=== PATIENT | female | born 1990 | race Caucasian/White ===

== ENCOUNTER 2016-11-11 23:23 | Emergency (ER) | payer BC ==
[2016-11-12] MEDS ORDERED: methylPREDNISolone 125 MG* 2 ML VIAL IM ONE (00:32)
[2016-11-12] MEDS ORDERED: Albuterol/Ipratropium NEB.SOL* Albuterol 2.5 MG/Ipratropium 0.5 MG 3 ML INH ONE ×2 (00:32→03:06)
[2016-11-12 01:10] LABS: Hematocrit 39 % (35-47); Hemoglobin 12.9 g/dl (12.0-16.0); Mean Corpuscular HGB Conc 33 g/dl (31-36); Mean Corpuscular Hemoglobin 30 pg (27-31); Mean Corpuscular Volume 90 fL (80-97); Mean Platelet Volume 10 um3 (7.4-10.4); Red Blood Count 4.37 10^6/ul (4.0-5.4); Red Cell Distribution Width 13 % (10.5-15); White Blood Count 8.9 10^3/ul (3.5-10.8)
[2016-11-12 01:26] LABS: BUN/Creatinine Ratio 12.7 (8-20); Calcium 9.6 mg/dL (8.6-10.3); EGFR African American 113.1 (>60); Potassium 3.2 mmol/L (3.5-5.0)
[2016-11-12] MEDS ORDERED: Magnesium Oxide TAB* 400 MG PO ONE (03:06)
--- NOTE | 2016-11-12 03:09 | ED ---
Shortness of Breath - HPI Summary HPI Summary: This is a 26F, hx anxiety and asthma, presenting for two weeks of shortness of breath, wheezing, cough and chest burning with cough. She has had two visits with her PCP, apparently failed peak flow testing at the office and diagnosed with asthma and subsequently referred to pulmonology. She is taking inhaled corticosteroids, new age bronchodilators, and has been on 20 mg prednisone for the past two days. No relief of symptoms with those treatments, except for her albuterol nebulizer. Denies hemoptysis, fever, sweats, chills, leg swelling or pain, recent travel greater than 1 hr, recent surgery, recent immobilization or history of clots. Nonsmoker. She is on contraceptive medication. She does report her anxiety flaring up, believes that her anxiety may influence her shortness of breath. - History of Current Complaint Chief Complaint: EDAsthma Time Seen by Provider: 11/12/16 00:02 Hx Obtained From: Patient Onset/Duration: Sudden Onset Timing: Constant Current Severity: Mild Dyspnea At: Exertion Aggrevating Factors: Deep Breaths Alleviating Factors: Bronchodilators Associated Signs & Symptoms: Cough (Nonproductive), Wheezing, Chest Pain w/Cough - Risk Factors Pulmonary Embolism: Estrogen Cardiac: Negative Pseudomonas: Negative Tuberculosis: Negative - Allergy/Home Medications Allergies/Adverse Reactions: Allergies Allergy/AdvReac Type Severity Reaction Status Date / Time No Known Allergies Allergy Verified 05/17/14 11:47 PMH/Surg Hx/FS Hx/Imm Hx Previously Healthy: Yes Endocrine/Hematology History: Denies: Hx Anticoagulant Therapy, Hx Blood Disorders, Hx Blood Transfusions, Hx Bone Marrow Disease, Hx Diabetes, Hx Systemic Lupus Erythematosus, Hx Sickle Cell Disease, Hx Thyroid Disease, Hx Anemia, Hx Unexplained Bleeding, Hx Coagulopothy, Autoimmune Disease, Other Endocrine/Hematological Disorders Respiratory History: Reports: Hx Asthma - Surgical History Surgery Procedure, Year, and Place: INGUINAL HERNIA A CHILD ? SIDE Infectious Disease History: No Infectious Disease History: Denies: Traveled Outside the [place] in Last 30 Days - Social History Alcohol Use: None Substance Use Type: Reports: None Smoking Status (MU): Never Smoked Tobacco Review of Systems Constitutional: Negative Eyes: Negative ENT: Negative Cardiovascular: Negative Respiratory: Negative Gastrointestinal: Negative Genitourinary: Negative Musculoskeletal: Negative Skin: Negative Neurological: Negative Psychological: Normal All Other Systems Reviewed And Are Negative: Yes Physical Exam - Summary Physical Exam Summary: Diminished breath sounds bilaterally, no resp distress or tachypnea Triage Information Reviewed: Yes Vital Signs On Initial Exam: Initial Vitals Temp Pulse Resp BP Pulse Ox 36.6 C 86 18 156/67 100 11/11/16 23:34 11/11/16 23:34 11/11/16 23:34 11/11/16 23:34 11/11/16 23:34 Vital Signs Reviewed: Yes Appearance: Positive: Well-Appearing Skin: Positive: Warm Head/Face: Positive: Normal Head/Face Inspection Eyes: Positive: Normal ENT: Positive: Normal ENT inspection Neck: Positive: Supple, Nontender, No Lymphadenopathy Respiratory/Lung Sounds: Positive: Decreased Breath Sounds Cardiovascular: Positive: Normal, RRR, Pulses are Symmetrical in both Upper and Lower Extremities Abdomen Description: Positive: Nontender, No Organomegaly Bowel Sounds: Positive: Present Musculoskeletal: Positive: Normal Neurological: Positive: Normal Psychiatric: Positive: Normal - [place] Coma Scale Coma Scale Total: 15 Diagnostics - Vital Signs Vital Signs Temp Pulse Resp BP Pulse Ox 11/12/16 01:34 60 99 11/12/16 01:30 36.6 C 60 20 123/65 100 11/11/16 23:34 36.6 C 86 18 156/67 100 - Laboratory Lab Results: Lab Results 11/12/16 11/12/16 11/12/16 Range/Units 00:54 00:54 00:54 WBC 8.9 (3.5-10.8) 10^3/ul RBC 4.37 (4.0-5.4) 10^6/ul Hgb 12.9 (12.0-16.0) g/dl Hct 39 (35-47) % MCV 90 (80-97) fL MCH 30 (27-31) pg MCHC 33 (31-36) g/dl RDW 13 (10.5-15) % Plt Count 189 (150-450) 10^3/ul MPV 10 (7.4-10.4) um3 D-Dimer, Quantitative < 200 (Less Than 230) ng/mL Sodium 137 (133-145) mmol/L Potassium 3.2 L (3.5-5.0) mmol/L Chloride 105 (101-111) mmol/L Carbon Dioxide 25 (22-32) mmol/L Anion Gap 7 (2-11) mmol/L BUN 10 (6-24) mg/dL Creatinine 0.79 (0.51-0.95) mg/dL Est GFR ( Amer) 113.1 (>60) Est GFR (Non-Af Amer) 88.0 (>60) BUN/Creatinine Ratio 12.7 (8-20) Glucose 104 H (70-100) mg/dL Calcium 9.6 (8.6-10.3) mg/dL Result Diagrams: 11/12/16 00:54 11/12/16 00:54 Lab Statement: Any lab studies that have been ordered have been reviewed, and results considered in the medical decision making process. - Radiology No standard instances Xray Interpretation: No Acute Changes Radiology Interpretation Completed By: ED Physician Re-Evaluation - Re-Evaluation First Eval Re-Evaluation Time: 00:30 Change: Improved - Improved after neb Second Eval Re-Evaluation Time: 03:00 Change: Improved - ambulatory, feeling better, improved aeration Course/Dx - Course Course Of Treatment: D-dimer negative, no suspicion for cardiac etiology of burning/sob. Lung sounds diminished, dx asthma, improved with bronchodilators. Transitioned patient off prednisone to medrol dosepak, referred back to PCP. No distress, ambulatory sat 99% - Diagnoses Provider Diagnoses: Asthma exacerbation Discharge - Discharge Plan Condition: Good Disposition: HOME Prescriptions: Methylprednisolone [Medrol Dosepak 4 MG*] 1 mg PO .SEE YUNIER INSTRUCTION #1 packet Patient Education Materials: Asthma (ED) Referrals: Ang David MD [Primary Care Provider] - 2 Days (RETURN TO ER FOR CHANGING OR WORSENING SYMPTOMS STOP TAKING YOUR PREDNISONE)
[2016-11-12 05:59] VITALS: BP 125/67
--- NOTE | 2016-11-12 07:49 | RAD ---
INDICATION: Shortness of breath and coughing COMPARISON: Similar chest x-ray dated August 12, 2012 TECHNIQUE: PA and lateral views of the chest were obtained. FINDINGS: The heart and mediastinum are normal in size and contour. The lungs are grossly clear. There is no evidence of large pleural effusion. Visualized bones are normal for the patient's age. There is no radiographic evidence of free air beneath the diaphragm IMPRESSION: No radiographic evidence of acute cardiopulmonary disease.
== END 2016-11-12 04:45 | disposition home or self-care (01) ==
LOC: ED 23:23
DX: J45.909 Unspecified asthma, uncomplicated (principal)
CPT/HCPCS: 36415; 71020; 80048; 85027; 85379; 94640; A9270-GY; J2930

== ENCOUNTER 2016-11-16 15:52 | Emergency (ER) | payer BC ==
[2016-11-16] MEDS ORDERED: Ondansetron INJ* 2 MG/ML VIAL IV ONE (16:53)
[2016-11-16] MEDS ORDERED: HYDROmorphone* 1 MG/ML 1 ML SYR IV ONE (16:53)
[2016-11-16] MEDS ORDERED: NS 0.9% 1000 ML* 1,000 ML IV ONE (16:53)
[2016-11-16] MEDS ORDERED: Ketorolac INJ* 30 MG/ML 1 ML VIAL IV ONE (17:31)
[2016-11-16 17:45] LABS: Hematocrit 40 % (35-47); Hemoglobin 13.5 g/dl (12.0-16.0); Mean Corpuscular HGB Conc 34 g/dl (31-36); Mean Corpuscular Hemoglobin 31 pg (27-31); Mean Corpuscular Volume 91 fL (80-97); Mean Platelet Volume 10 um3 (7.4-10.4); Red Blood Count 4.39 10^6/ul (4.0-5.4); Red Cell Distribution Width 13 % (10.5-15); White Blood Count 8.4 10^3/ul (3.5-10.8)
[2016-11-16 17:51] LABS: Urine Bacteria 1+ (Absent); Urine Bilirubin Negative (Negative); Urine Glucose Negative (Negative); Urine Nitrite Negative (Negative)
[2016-11-16 18:04] LABS: ALT 18 U/L (7-52); AST 12 U/L (13-39); Albumin 4.1 g/dL (3.2-5.2); Alkaline Phosphatase 29 U/L (34-104); Anion Gap 4 mmol/L (2-11); Blood Urea Nitrogen 9 mg/dL (6-24); C Reactive Protein < 1.00 mg/L (< 5.00); CO2 Carbon Dioxide 28 mmol/L (22-32); Calcium 9.4 mg/dL (8.6-10.3); Chloride 103 mmol/L (101-111); EGFR African American 120.1 (>60); EGFR Non-African American 93.4 (>60); Globulin 2.6 g/dL (2-4); Glucose 100 mg/dL (70-100); Lipase 28 U/L (11.0-82.0); Potassium 3.6 mmol/L (3.5-5.0); Sodium 135 mmol/L (133-145); Total Protein 6.7 g/dL (6.4-8.9)
[2016-11-16 20:04] VITALS: BP 121/67
--- NOTE | 2016-11-18 14:52 | ED ---
Lito Vale Alok, scribed for Rodney Ocasio MD on 11/16/16 at 1650 . Abdominal Pain/Female - HPI Summary HPI Summary: 26F presents to the ED with diffuse abd pain described as burning for the past 3 days. Pt was last here 5 days ago due to asthma exacerbation and had a shot of Solu-medrol at the ED. Pt tired taking her GERD medication for her abd pain with no alleviation. Pt states that her pain improves temporarily after food. Pt also notes diaphoresis. Pt denies urinary symptoms and states her BM have been normal. PMHx includes GERD and PSHx includes a hernia repair. Pt reports NKDA. - History of Current Complaint Chief Complaint: EDAbdPain Stated Complaint: ABD PAIN Time Seen by Provider: 11/16/16 16:17 Hx Obtained From: Patient Onset/Duration: Lasting Days, Still Present Timing: Constant Severity Initially: Moderate Severity Currently: Moderate Pain Intensity: 8 Pain Scale Used: 0-10 Numeric Location: Diffuse Character: Burning Aggravating Factor(s): Nothing Alleviating Factor(s): Other: - Food Associated Signs and Symptoms: Positive: Diaphoresis. Negative: Fever, Constipation, Urinary Symptoms Allergies/Adverse Reactions: Allergies Allergy/AdvReac Type Severity Reaction Status Date / Time No Known Allergies Allergy Verified 05/17/14 11:47 PMH/Surg Hx/FS Hx/Imm Hx Endocrine/Hematology History: Denies: Hx Anticoagulant Therapy, Hx Blood Disorders, Hx Blood Transfusions, Hx Bone Marrow Disease, Hx Diabetes, Hx Systemic Lupus Erythematosus, Hx Sickle Cell Disease, Hx Thyroid Disease, Hx Anemia, Hx Unexplained Bleeding, Other Endocrine/Hematological Disorders Respiratory History: Reports: Hx Asthma - Surgical History Surgery Procedure, Year, and Place: INGUINAL HERNIA A CHILD ? SIDE Infectious Disease History: Denies: Traveled Outside the [place] in Last 30 Days - Family History Known Family History: Negative: Cardiac Disease, Hypertension, Diabetes - Social History Occupation: Unemployed Alcohol Use: None Substance Use Type: Reports: None Smoking Status (MU): Never Smoked Tobacco Review of Systems Negative: Fever Positive: Abdominal Pain Positive: no symptoms reported - Urinary All Other Systems Reviewed And Are Negative: Yes Physical Exam Triage Information Reviewed: Yes Vital Signs On Initial Exam: Initial Vitals Temp Pulse Resp BP Pulse Ox 98 F 67 17 131/76 100 11/16/16 15:52 11/16/16 15:52 11/16/16 15:52 11/16/16 15:52 11/16/16 15:52 Vital Signs Reviewed: Yes Appearance: Positive: Well-Appearing, No Pain Distress Skin: Positive: Warm, Skin Color Reflects Adequate Perfusion, Dry Head/Face: Positive: Normal Head/Face Inspection Eyes: Positive: Normal ENT: Positive: Normal ENT inspection Neck: Positive: Supple, Nontender Respiratory/Lung Sounds: Positive: Clear to Auscultation, Breath Sounds Present Cardiovascular: Positive: RRR Abdomen Description: Positive: Soft, Other: - Diffusely tender especially in the lower quadrants and right-side lower quadrant Bowel Sounds: Positive: Present Musculoskeletal: Positive: Normal Neurological: Positive: Normal Psychiatric: Positive: Normal, Affect/Mood Appropriate Diagnostics - Vital Signs Vital Signs Temp Pulse Resp BP Pulse Ox 11/16/16 15:52 98 F 67 17 131/76 100 - Laboratory Lab Results: Lab Results 11/16/16 11/16/16 11/16/16 Range/Units 17:20 17:20 17:20 WBC 8.4 (3.5-10.8) 10^3/ul RBC 4.39 (4.0-5.4) 10^6/ul Hgb 13.5 (12.0-16.0) g/dl Hct 40 (35-47) % MCV 91 (80-97) fL MCH 31 (27-31) pg MCHC 34 (31-36) g/dl RDW 13 (10.5-15) % Plt Count 188 (150-450) 10^3/ul MPV 10 (7.4-10.4) um3 Neut % (Auto) 68.9 (38-83) % Lymph % (Auto) 24.5 L (25-47) % [place] % (Auto) 6.1 (1-9) % Eos % (Auto) 0.4 (0-6) % Baso % (Auto) 0.1 (0-2) % Absolute Neuts (auto) 5.8 (1.5-7.7) 10^3/ul Absolute Lymphs (auto) 2.1 (1.0-4.8) 10^3/ul Absolute Monos (auto) 0.5 (0-0.8) 10^3/ul Absolute Eos (auto) 0 (0-0.6) 10^3/ul Absolute Basos (auto) 0 (0-0.2) 10^3/ul Absolute Nucleated RBC 0 10^3/ul Nucleated RBC % 0 Sodium 135 (133-145) mmol/L Potassium 3.6 (3.5-5.0) mmol/L Chloride 103 (101-111) mmol/L Carbon Dioxide 28 (22-32) mmol/L Anion Gap 4 (2-11) mmol/L BUN 9 (6-24) mg/dL Creatinine 0.75 (0.51-0.95) mg/dL Est GFR ( Amer) 120.1 (>60) Est GFR (Non-Af Amer) 93.4 (>60) BUN/Creatinine Ratio 12.0 (8-20) Glucose 100 (70-100) mg/dL Lactic Acid 1.3 (0.5-2.0) mmol/L Calcium 9.4 (8.6-10.3) mg/dL Total Bilirubin 0.40 (0.2-1.0) mg/dL AST 12 L (13-39) U/L ALT 18 (7-52) U/L Alkaline Phosphatase 29 L (34-104) U/L C-Reactive Protein < 1.00 (< 5.00) mg/L Total Protein 6.7 (6.4-8.9) g/dL Albumin 4.1 (3.2-5.2) g/dL Globulin 2.6 (2-4) g/dL Albumin/Globulin Ratio 1.6 (1-3) Lipase 28 (11.0-82.0) U/L Beta HCG, Quant < 0.60 mIU/mL Urine Color Urine Appearance Urine pH (5-9) Ur Specific [place] (1.010-1.030) Urine Protein (Negative) Urine Ketones (Negative) Urine Blood (Negative) Urine Nitrate (Negative) Urine Bilirubin (Negative) Urine Urobilinogen (Negative) Ur Leukocyte Esterase (Negative) Urine WBC (Auto) (Absent) Urine RBC (Auto) (Absent) Ur Squamous Epith Cells (Absent) Urine Bacteria (Absent) Urine Glucose (Negative) 11/16/ Range/Units 17:25 WBC (3.5-10.8) 10^3/ul RBC (4.0-5.4) 10^6/ul Hgb (12.0-16.0) g/dl Hct (35-47) % MCV (80-97) fL MCH (27-31) pg MCHC (31-36) g/dl RDW (10.5-15) % Plt Count (150-450) 10^3/ul MPV (7.4-10.4) um3 Neut % (Auto) (38-83) % Lymph % (Auto) (25-47) % [place] % (Auto) (1-9) % Eos % (Auto) (0-6) % Baso % (Auto) (0-2) % Absolute Neuts (auto) (1.5-7.7) 10^3/ul Absolute Lymphs (auto) (1.0-4.8) 10^3/ul Absolute Monos (auto) (0-0.8) 10^3/ul Absolute Eos (auto) (0-0.6) 10^3/ul Absolute Basos (auto) (0-0.2) 10^3/ul Absolute Nucleated RBC 10^3/ul Nucleated RBC % Sodium (133-145) mmol/L Potassium (3.5-5.0) mmol/L Chloride (101-111) mmol/L Carbon Dioxide (22-32) mmol/L Anion Gap (2-11) mmol/L BUN (6-24) mg/dL Creatinine (0.51-0.95) mg/dL Est GFR ( Amer) (>60) Est GFR (Non-Af Amer) (>60) BUN/Creatinine Ratio (8-20) Glucose (70-100) mg/dL Lactic Acid (0.5-2.0) mmol/L Calcium (8.6-10.3) mg/dL Total Bilirubin (0.2-1.0) mg/dL AST (13-39) U/L ALT (7-52) U/L Alkaline Phosphatase (34-104) U/L C-Reactive Protein (< 5.00) mg/L Total Protein (6.4-8.9) g/dL Albumin (3.2-5.2) g/dL Globulin (2-4) g/dL Albumin/Globulin Ratio (1-3) Lipase (11.0-82.0) U/L Beta HCG, Quant mIU/mL Urine Color Straw Urine Appearance Clear Urine pH 7.0 (5-9) Ur Specific [place] 1.009 L (1.010-1.030) Urine Protein Negative (Negative) Urine Ketones Negative (Negative) Urine Blood Negative (Negative) Urine Nitrate Negative (Negative) Urine Bilirubin Negative (Negative) Urine Urobilinogen Negative (Negative) Ur Leukocyte Esterase Trace H (Negative) Urine WBC (Auto) Trace(0-5/hpf) (Absent) Urine RBC (Auto) Trace(0-2/hpf) (Absent) Ur Squamous Epith Cells Present H (Absent) Urine Bacteria 1+ H (Absent) Urine Glucose Negative (Negative) Result Diagrams: 11/16/16 17:20 11/16/16 17:20 Lab Statement: Any lab studies that have been ordered have been reviewed, and results considered in the medical decision making process. Abdominal Pain Fem Course/Dx - Course Course Of Treatment: Ms. Daly got started on meds the other day for an asthma exacerbation including solumedrol. She has developed a diffuse burning abdominal pain. She was diffusely tender without rebound or guarding which improved well with meds. Her labs were normal. - Diagnoses Provider Diagnoses: Abdominal pain Discharge - Discharge Plan Condition: Stable Disposition: HOME Patient Education Materials: Abdominal Pain (ED) Referrals: Ang David MD [Primary Care Provider] - Additional Instructions: Please follow up with your primary care physician and return to the ED if symptoms do not improve. Discontinue use of your steroids. The documentation as recorded by the Lito loya Alok accurately reflects the service I personally performed and the decisions made by , Rodney Ocasio MD.
== END 2016-11-16 18:40 | disposition home or self-care (01) ==
LOC: ED 15:52
DX: R10.9 Unspecified abdominal pain (principal)
CPT/HCPCS: 36415; 80053; 81003; 81015; 83605; 83690; 84702; 85025; 86140; 87086; 96374; 96375; 99283; J1170; J1885; J2405

== ENCOUNTER 2016-11-17 18:11 | Emergency (ER) | payer BC ==
[2016-11-17] MEDS ORDERED: Pantoprazole IV* 40 MG IV ONE (19:03)
[2016-11-17] MEDS ORDERED: NS 0.9% 1000 ML* 2,000 ML IV ONE (19:03)
[2016-11-17] MEDS ORDERED: Ondansetron INJ* 2 MG/ML VIAL IV ONE (19:03)
[2016-11-17 20:08] LABS: Hematocrit 41 % (35-47); Hemoglobin 13.4 g/dl (12.0-16.0); Mean Corpuscular HGB Conc 33 g/dl (31-36); Mean Corpuscular Hemoglobin 30 pg (27-31); Mean Corpuscular Volume 92 fL (80-97); Mean Platelet Volume 10 um3 (7.4-10.4); Red Blood Count 4.41 10^6/ul (4.0-5.4); Red Cell Distribution Width 13 % (10.5-15); White Blood Count 8.3 10^3/ul (3.5-10.8)
[2016-11-17 20:12] LABS: Urine Bacteria Absent (Absent); Urine Bilirubin Negative (Negative); Urine Glucose Negative (Negative); Urine Nitrite Negative (Negative)
[2016-11-17 20:30] LABS: Albumin 4.1 g/dL (3.2-5.2); BUN/Creatinine Ratio 10.7 (8-20); C Reactive Protein 1.65 mg/L (< 5.00); Calcium 9.8 mg/dL (8.6-10.3); EGFR African American 120.1 (>60); EGFR Non-African American 93.4 (>60); Globulin 2.7 g/dL (2-4); Potassium 3.5 mmol/L (3.5-5.0); Total Bilirubin 0.5 mg/dL (0.2-1.0); Total Protein 6.8 g/dL (6.4-8.9)
[2016-11-17] MEDS ORDERED: Acetaminophen TAB* 325 MG PO ONE (20:30)
[2016-11-17] MEDS ORDERED: Sucralfate TAB* 1 GM PO ONE (20:31)
[2016-11-17] MEDS ORDERED: Iohexol 300* (CONTRAST) 10 ML SDV IV ONE (21:08)
--- NOTE | 2016-11-17 21:47 | RAD ---
INDICATION: RIGHT side abdomen and epigastric pain. Question gastritis, cholecystitis, colitis, appendicitis. Remote history of inguinal hernia repair. COMPARISON: No relevant prior exams available on the [facility]. TECHNIQUE: Multidetector CT images were obtained from the lung bases to the ischial tuberosities with 111 mL Omnipaque 300 IV and oral contrast. Multiplanar reformation. REPORT: Unremarkable visualized inferior thorax. The liver, gallbladder, pancreas, and spleen are unremarkable. Negative for CT abnormality of the upper GI, small bowel, retrocecal appendix, or colon. Physiologic small volume of free pelvic fluid. Negative for free air. Negative for hernias. Normal adrenal glands. Unremarkable kidneys with symmetric nephrograms and pyelograms. Unremarkable ureters and partially distended urinary bladder. Unremarkable anteverted uterus and RIGHT adnexal region. 2.1 cm water density cyst at the LEFT ovary with concave inward margins reference the coronal reformatted series is consistent with an involuting follicular or hemorrhagic cyst. No visualized extra ovarian adnexal region lesions. Negative for lymphadenopathy. 0.5 cm short axis RIGHT lower quadrant lymph node is decreased from 0.8 cm previously. Normal diameter abdominal aorta and iliac arteries. Physiologic distention of the IVC. RIGHT hemisacralization of L5. Negative for suspicious focal osseous lesions. IMPRESSION: 1. No acute abdominal pelvic pathologic process evident. 2. Normal appendix documented. 3. 2.1 cm water density cyst at the LEFT ovary with concave inward margins reference the coronal reformatted series is consistent with an involuting follicular or hemorrhagic cyst.
[2016-11-17] MEDS ORDERED: traMADol TAB* 50 MG PO ONE (23:16)
--- NOTE | 2016-11-17 23:52 | ED ---
Elaine Vale Salem, scribed for David Patel MD on 11/17/16 at 1902 . Abdominal Pain/Female - HPI Summary HPI Summary: Patient is a 26 y/o F who presents to the ED with constant burning abd pain for the past 3 days. She states that she was in the ED yesterday with the same complaint, was given pain and nausea medication, and discharged. She then followed up with her PCP that night. She states that they will do a full work up in a few days if symptoms do not improve. She reports thrush, sore throat, a headache, burning back pain, subjective fever, nausea, and severe dry heaves, but denies blood in stool, diarrhea, or changes in BM. She states that it is like acid reflux but worse and she denies any hx of similar sx. She also states that PO intake improves sx and that the last time she ate was at 1230 today. Pt was also in the ED 6 days ago for asthma and had her asthma medication changed since as that was burning her lungs. Pt was only diagnosed with asthma recently. Pt states that she does not want a lot of medication. She takes Zantac for GERD. NKDA. - History of Current Complaint Chief Complaint: EDAbdPain Stated Complaint: ABD/BACK PAIN Time Seen by Provider: 11/17/16 18:51 Hx Obtained From: Patient Onset/Duration: Gradual Onset, Lasting Days, Still Present Timing: Constant Severity Initially: Moderate Severity Currently: Moderate Pain Intensity: 7 Pain Scale Used: 0-10 Numeric Location: Diffuse Radiates: Yes Radiates to: Back, Chest Character: Burning Aggravating Factor(s): Other: - NPO. Alleviating Factor(s): Other: - Food. Associated Signs and Symptoms: Positive: Fever, Back Pain, Nausea. Negative: Blood in Stool, Diarrhea Allergies/Adverse Reactions: Allergies Allergy/AdvReac Type Severity Reaction Status Date / Time No Known Allergies Allergy Verified 05/17/14 11:47 PMH/Surg Hx/FS Hx/Imm Hx Endocrine/Hematology History: Denies: Hx Anticoagulant Therapy, Hx Blood Disorders, Hx Blood Transfusions, Hx Bone Marrow Disease, Hx Diabetes, Hx Systemic Lupus Erythematosus, Hx Sickle Cell Disease, Hx Thyroid Disease, Hx Anemia, Hx Unexplained Bleeding, Other Endocrine/Hematological Disorders Respiratory History: Reports: Hx Asthma - Surgical History Surgery Procedure, Year, and Place: INGUINAL HERNIA A CHILD ? SIDE Infectious Disease History: No Infectious Disease History: Denies: Traveled Outside the [place] in Last 30 Days - Family History Known Family History: Positive: Cardiac Disease, Hypertension, Diabetes, Other - No Crohn's dx. - Social History Alcohol Use: None Hx Substance Use: No Substance Use Type: Reports: None Hx Tobacco Use: No Smoking Status (MU): Never Smoked Tobacco Review of Systems Positive: Fever Positive: Sore Throat, Other - Thrush. Positive: Abdominal Pain. Negative: Diarrhea Genitourinary: Other - No blood in stool. No changes in BM. Positive: Other - Burning back pain. Positive: Headache All Other Systems Reviewed And Are Negative: Yes Physical Exam - Summary Physical Exam Summary: The patient is in mild distress. The skin is warm and dry and skin color reflects adequate perfusion. HEENT: The head is normocephalic and atraumatic. The pupils are equal and reactive. The conjunctivae are clear and without drainage. Nares are patent and without drainage. Throat is without erythema and exudate. The external ears are intact. The ear canals are patent and without drainage. The tympanic membranes are intact. DMM. Thrush on tongue. Neck is supple with full range of motion and non-tender. Respiratory: Chest is non-tender. Lungs are clear to auscultation and breath sounds are symmetrical and equal. Cardiovascular: Heart is regular rate and rhythm. There is no murmur, rales, or rub auscultated. There is no peripheral edema and pulses are symmetrical and equal. Abdomen: The abdomen is soft and obese. RLQ abd pain. Guarding. Epigastric pain non-reproducible. There are normal bowel sounds heard in all four quadrants. Musculoskeletal: There is no back pain noted. Extremities are non-tender with full range of motion. There is good capillary refill. There is no peripheral edema or calf tenderness elicited. Neurological: Patient is alert and oriented to person, place and time. The patient has symmetrical motor strength in all four extremities. Psychiatric: The patient has an appropriate affect and does not exhibit any anxiety or depression. Triage Information Reviewed: Yes Vital Signs On Initial Exam: Initial Vitals Temp Pulse Resp BP Pulse Ox 98.3 F 67 16 134/90 100 11/17/16 18:26 11/17/16 18:26 11/17/16 18:26 11/17/16 18:26 11/17/16 18:26 Vital Signs Reviewed: Yes - [place] Coma Scale Coma Scale Total: 15 Diagnostics - Vital Signs Vital Signs Temp Pulse Resp BP Pulse Ox 11/17/16 18:39 98.3 F 55 18 128/83 100 11/17/16 18:26 98.3 F 67 16 134/90 100 - Laboratory Lab Results: Lab Results 11/17/16 11/17/16 11/17/16 Range/Units 19:55 19:55 19:55 WBC 8.3 (3.5-10.8) 10^3/ul RBC 4.41 (4.0-5.4) 10^6/ul Hgb 13.4 (12.0-16.0) g/dl Hct 41 (35-47) % MCV 92 (80-97) fL MCH 30 (27-31) pg MCHC 33 (31-36) g/dl RDW 13 (10.5-15) % Plt Count 209 (150-450) 10^3/ul MPV 10 (7.4-10.4) um3 Neut % (Auto) 63.6 (38-83) % Lymph % (Auto) 27.8 (25-47) % [place] % (Auto) 7.0 (1-9) % Eos % (Auto) 1.4 (0-6) % Baso % (Auto) 0.2 (0-2) % Absolute Neuts (auto) 5.3 (1.5-7.7) 10^3/ul Absolute Lymphs (auto) 2.3 (1.0-4.8) 10^3/ul Absolute Monos (auto) 0.6 (0-0.8) 10^3/ul Absolute Eos (auto) 0.1 (0-0.6) 10^3/ul Absolute Basos (auto) 0 (0-0.2) 10^3/ul Absolute Nucleated RBC 0.01 10^3/ul Nucleated RBC % 0.1 INR (Anticoag Therapy) (0.89-1.11) Sodium 137 (133-145) mmol/L Potassium 3.5 (3.5-5.0) mmol/L Chloride 102 (101-111) mmol/L Carbon Dioxide 29 (22-32) mmol/L Anion Gap 6 (2-11) mmol/L BUN 8 (6-24) mg/dL Creatinine 0.75 (0.51-0.95) mg/dL Est GFR ( Amer) 120.1 (>60) Est GFR (Non-Af Amer) 93.4 (>60) BUN/Creatinine Ratio 10.7 (8-20) Glucose 91 (70-100) mg/dL Lactic Acid (0.5-2.0) mmol/L Calcium 9.8 (8.6-10.3) mg/dL Total Bilirubin 0.50 (0.2-1.0) mg/dL AST 13 (13-39) U/L ALT 19 (7-52) U/L Alkaline Phosphatase 31 L (34-104) U/L Total Creatine Kinase 27 (10-223) U/L Troponin I 0.00 (<0.04) ng/mL C-Reactive Protein 1.65 (< 5.00) mg/L Total Protein 6.8 (6.4-8.9) g/dL Albumin 4.1 (3.2-5.2) g/dL Globulin 2.7 (2-4) g/dL Albumin/Globulin Ratio 1.5 (1-3) Amylase 31 (29-103) U/L Lipase 32 (11.0-82.0) U/L Urine Color Yellow Urine Appearance Clear Urine pH 6.0 (5-9) Ur Specific [place] 1.009 L (1.010-1.030) Urine Protein Negative (Negative) Urine Ketones Negative (Negative) Urine Blood Negative (Negative) Urine Nitrate Negative (Negative) Urine Bilirubin Negative (Negative) Urine Urobilinogen Negative (Negative) Ur Leukocyte Esterase Trace H (Negative) Urine WBC (Auto) Trace(0-5/hpf) (Absent) Urine RBC (Auto) Absent (Absent) Ur Squamous Epith Cells Present H (Absent) Urine Bacteria Absent (Absent) Urine Glucose Negative (Negative) 11/17/16 11/17/16 Range/Units 19:55 19:55 WBC (3.5-10.8) 10^3/ul RBC (4.0-5.4) 10^6/ul Hgb (12.0-16.0) g/dl Hct (35-47) % MCV (80-97) fL MCH (27-31) pg MCHC (31-36) g/dl RDW (10.5-15) % Plt Count (150-450) 10^3/ul MPV (7.4-10.4) um3 Neut % (Auto) (38-83) % Lymph % (Auto) (25-47) % [place] % (Auto) (1-9) % Eos % (Auto) (0-6) % Baso % (Auto) (0-2) % Absolute Neuts (auto) (1.5-7.7) 10^3/ul Absolute Lymphs (auto) (1.0-4.8) 10^3/ul Absolute Monos (auto) (0-0.8) 10^3/ul Absolute Eos (auto) (0-0.6) 10^3/ul Absolute Basos (auto) (0-0.2) 10^3/ul Absolute Nucleated RBC 10^3/ul Nucleated RBC % INR (Anticoag Therapy) 0.91 (0.89-1.11) Sodium (133-145) mmol/L Potassium (3.5-5.0) mmol/L Chloride (101-111) mmol/L Carbon Dioxide (22-32) mmol/L Anion Gap (2-11) mmol/L BUN (6-24) mg/dL Creatinine (0.51-0.95) mg/dL Est GFR ( Amer) (>60) Est GFR (Non-Af Amer) (>60) BUN/Creatinine Ratio (8-20) Glucose (70-100) mg/dL Lactic Acid 1.0 (0.5-2.0) mmol/L Calcium (8.6-10.3) mg/dL Total Bilirubin (0.2-1.0) mg/dL AST (13-39) U/L ALT (7-52) U/L Alkaline Phosphatase (34-104) U/L Total Creatine Kinase (10-223) U/L Troponin I (<0.04) ng/mL C-Reactive Protein (< 5.00) mg/L Total Protein (6.4-8.9) g/dL Albumin (3.2-5.2) g/dL Globulin (2-4) g/dL Albumin/Globulin Ratio (1-3) Amylase (29-103) U/L Lipase (11.0-82.0) U/L Urine Color Urine Appearance Urine pH (5-9) Ur Specific [place] (1.010-1.030) Urine Protein (Negative) Urine Ketones (Negative) Urine Blood (Negative) Urine Nitrate (Negative) Urine Bilirubin (Negative) Urine Urobilinogen (Negative) Ur Leukocyte Esterase (Negative) Urine WBC (Auto) (Absent) Urine RBC (Auto) (Absent) Ur Squamous Epith Cells (Absent) Urine Bacteria (Absent) Urine Glucose (Negative) Result Diagrams: 11/17/16 19:55 11/17/16 19:55 Diagnostic Studies Comment: Trop: 0.00 Lab Statement: Any lab studies that have been ordered have been reviewed, and results considered in the medical decision making process. - CT ABD/PELVIS CT Interpretation Completed By: Radiologist - IMPRESSION: 1. No acute abdominal pelvic pathologic process evident. 2. Normal appendix documented. 3. 2.1 cm water density cyst at the LEFT ovary with concave inward margins reference the coronal reformatted series is consistent with an involuting follicular or hemorrhagic cyst. - EKG 2137 EKG Interpretation: NSR @ [address] elevation. Re-Evaluation - Re-Evaluation First Eval Re-Evaluation Time: 20:30 Comment: Burning is a little less. Pt will like to try Tylenol and will be given Carafate. Second Eval Re-Evaluation Time: 22:06 Comment: Pt is feeling a little better, but is concerned about pain returning when she gets home. Will observe her further. Third Eval Re-Evaluation Time: 23:13 Comment: Felling a little better. Gave her crackers to eat. She agreed to taking pain medication home. Abdominal Pain Fem Course/Dx - Course Course Of Treatment: 26 y/o F presents with constant burning abd pain for the past 3 days. She reports thrush, sore throat, a headache, burning back pain, subjective fever, nausea, and severe dry heaves, but denies blood in stool, diarrhea, or changes in BM. Pt received Tylenol, fluids, Zofran, Protonix, and Carafate in the ED course. CT of ABD/PELVIS shows, per radiology,IMPRESSION: 1. No acute abdominal pelvic pathologic process evident. 2. Normal appendix documented. 3. 2.1 cm water density cyst at the LEFT ovary with concave inward margins reference the. coronal reformatted series is consistent with an involuting follicular or hemorrhagic. cyst. EKG shows NSR @ [address] bpm. [address] elevation. Pt will be DC'd with pain medication. She is agreeable. - Diagnoses Differential Diagnosis: Positive: Appendicitis, Pancreatitis, Peptic Ulcer Disease, Other - gastritis, peptic ulcer disease Provider Diagnoses: Abdominal pain, Gastritis, Peptic ulcer disease Discharge - Discharge Plan Condition: Stable Disposition: HOME Prescriptions: Pantoprazole TAB (NF) [Protonix TAB (NF)] 40 mg PO DAILY #30 tab Sucralfate TAB* [Carafate*] 1 gm PO QID #120 tab Patient Education Materials: Peptic Ulcer (ED), Gastritis (ED), Abdominal Pain (ED) Referrals: Ang David MD [Primary Care Provider] - Additional Instructions: Please follow up with your primary care provider. The documentation as recorded by the Elaine loya Salem accurately reflects the service I personally performed and the decisions made by , David Patel MD.
[2016-11-18 00:43] VITALS: BP 108/62
== END 2016-11-18 00:10 | disposition home or self-care (01) ==
LOC: ED 18:11
DX: K29.70 Gastritis, unspecified, without bleeding (principal); K27.9 Peptic ulcer, site unspecified, unspecified as acute or chronic, without hemorrhage or perforation; R10.9 Unspecified abdominal pain; R50.9 Fever, unspecified; J02.9 Acute pharyngitis, unspecified; M54.9 Dorsalgia, unspecified; R11.0 Nausea
CPT/HCPCS: 36415; 74177; 80053; 81003; 81015; 82150; 82550; 83605; 83690; 84484; 85025; 85610; 86140; 87086; 93005; 99284; A9270-GY; J2405; Q9967

== ENCOUNTER 2019-03-28 07:38 | Emergency (ER) | payer MEDICAID ==
--- NOTE | 2019-03-28 08:05 | ED ---
GI/ HPI - HPI Summary HPI Summary: Patient is a 28 y/o F presenting to the ED for a chief complaint of vaginal discharge on the night of 03/27/19. Patient is present with her . Patient is 12 weeks and is on her second . Patient sees a provider at [facility] and was told to monitor the vaginal discharge. Patient describes the vaginal discharge as clear fluid that was a "quiroz of fluid " which has since resolved. Patient does admit suprapubic abdominal pain described as cramping and lower back pain on the morning of 03/28/19. Patient also admits urinary frequency which she attributes to her . Patient denies any fever, chills, diaphoresis, erythema of eyes, sore throat, CP, SOB, cough, N/V, dysuria, hematuria, vaginal bleeding, edema, rash, or dizziness. Patient denies any aggravating or alleviating factors. On 03/27/19, she walked 6 miles while tracking a deer. Patient has a PMHx of asthma and UTI. Patient is currently taking pre-bonnie vitamins. Patient denies tobacco or alcohol use. Patient works as a ophthalmic aide. - History of Current Complaint Chief Complaint: EDOBProblems Time Seen by Provider: 03/28/19 07:45 Stated Complaint: 12 WKS PREG CRAMPING/LOST FLUID/BACK PAIN PER PT Hx Obtained From: Patient Onset/Duration: Started Hours Ago, Atraumatic, Resolved Timing: Lasting Hours Severity: Moderate Current Severity: Moderate Pain Intensity: 6 Location of Pain: Suprapubic Associated Signs and Symptoms: Positive: Back Pain - Lower, Discharge - Vaginal with clear fluid, Abdominal Pain - Suprapubic. Negative: Dizziness, Nausea, Vomiting, Diarrhea, Fever, Hematuria, Dysuria, Chills, Cough, Chest Pain, UTI Symptoms - Negative dysuria or hematuria Aggravating Factor(s): Nothing Alleviating Factor(s): Nothing - Allergy/Home Medications Allergies/Adverse Reactions: Allergies Allergy/AdvReac Type Severity Reaction Status Date / Time No Known Allergies Allergy Verified 03/28/19 07:43 Home Medications: Home Medications 114/Iron A-G/Folate 1 [Prenate Elite Tablet] 1 each PO DAILY 03/28/19 [ History Confirmed 03/28/19] PMH/Surg Hx/FS Hx/Imm Hx Previously Healthy: Yes Endocrine/Hematology History: Denies: Hx Anticoagulant Therapy, Hx Blood Disorders, Hx Blood Transfusions, Hx Bone Marrow Disease, Hx Diabetes, Hx Systemic Lupus Erythematosus, Hx Sickle Cell Disease, Hx Thyroid Disease, Hx Anemia, Hx Unexplained Bleeding, Other Endocrine/Hematological Disorders Cardiovascular History: Denies: Hx Hypertension Respiratory History: Reports: Hx Asthma History: Denies: Hx Renal Disease Sensory History: Denies: Hx Legally Blind, Hx Deafness Opthamlomology History: Denies: Hx Legally Blind EENT History: Denies: Hx Deafness - Surgical History Surgical History: Yes Surgery Procedure, Year, and Place: INGUINAL HERNIA A CHILD ? SIDE Infectious Disease History: No Infectious Disease History: Denies: Traveled Outside the [place] in Last 30 Days - Family History Known Family History: Positive: Cardiac Disease, Hypertension, Diabetes, Other - No Crohn's dx. - Social History Occupation: Employed Full-time Lives: With Family Alcohol Use: None Hx Substance Use: No Substance Use Type: Reports: None Hx Tobacco Use: No Smoking Status (MU): Never Smoked Tobacco Review of Systems Negative: Fever, Chills, Skin Diaphoresis Negative: Erythema Negative: Sore Throat Negative: Chest Pain Negative: Shortness Of Breath, Cough Negative: Abdominal Pain, Vomiting, Nausea Positive: discharge - Vaginal with clear fluid, frequency - Urinary attributed to , other - Negative vaginal bleeding. Negative: dysuria, hematuria Negative: Myalgia, Edema Negative: Rash Neurological: Other - Negative dizziness All Other Systems Reviewed And Are Negative: Yes Physical Exam - Summary Physical Exam Summary: Constitutional: Well-developed, Well-nourished, Alert. (-) Distressed Skin: Warm, Dry HENT: Normocephalic; Atraumatic Eyes: Conjunctiva normal Neck: Musculoskeletal ROM normal neck. (-) JVD, (-) Stridor, (-) Tracheal deviation Cardio: Rhythm regular, rate normal, Heart sounds normal; Intact distal pulses; The pedal pulses are 2+ and symmetric. Radial pulses are 2+ and symmetric. (-) Murmur Pulmonary/Chest wall: Effort normal. (-) Respiratory distress, (-) Wheezes, (-) Rales Abd: Soft, (-) tenderness, (-) Distension, (-) Guarding, (-) Rebound Musculoskeletal: (-) Edema Lymph: (-) Cervical adenopathy Neuro: Alert, Oriented x3 Psych: Mood and affect Normal Triage Information Reviewed: Yes Vital Signs On Initial Exam: Initial Vitals Temp Pulse Resp BP Pulse Ox 98.4 F 68 16 129/74 100 03/28/19 07:39 03/28/19 07:39 03/28/19 07:39 03/28/19 07:39 03/28/19 07:39 Vital Signs Reviewed: Yes Procedures - Sedation Patient Received Moderate/Deep Sedation with Procedure: No Diagnostics - Vital Signs Vital Signs Temp Pulse Resp BP Pulse Ox 03/28/19 07:39 98.4 F 68 16 129/74 100 - Laboratory Result Diagrams: 03/28/19 07:56 03/28/19 07:56 Lab Statement: Any lab studies that have been ordered have been reviewed, and results considered in the medical decision making process. - Ultrasound US Ultrasound Interpretation Completed By: Radiologist Summary of Ultrasound Findings: US IMPRESSION: 1. Single live intrauterine gestation with a crown-rump length yielding a gestational age of 12 weeks and 1 day. 2. The cervix is visualized and appears to be closed measuring 3.8 cm in length. Reviewed by ED physician. GIGU Course/Dx - Course Course Of Treatment: Patient is a 28 y/o F presenting to the ED for a chief complaint of vaginal discharge on the night of 03/27/19. Patient is present with her . Patient is 12 weeks and is on her second . Patient sees a provider at [facility] and was told to monitor the vaginal discharge. Patient describes the vaginal discharge as clear fluid that was a "quiroz of fluid" which has since resolved. Patient does admit suprapubic abdominal pain described as cramping and lower back pain on the morning of 03/28. Patient also admits urinary frequency which she attributes to her . Patient denies any fever, chills, diaphoresis, erythema of eyes, sore throat, CP, SOB, cough, N/V, dysuria, hematuria, vaginal bleeding, edema, rash, or dizziness. Patient denies any aggravating or alleviating factors. On , she walked 6 miles while tracking a deer. Patient has a PMHx of asthma and UTI. Patient is currently taking pre-bonnie vitamins. Patient denies tobacco or alcohol use. On exam, unremarkable findings. Differential Dx: UTI, premature membrane rupture, threatened . Laboratory abnormal findings: Alkaline phosphatase 32, urine specific gravity 1.004. US IMPRESSION: 1. Single live intrauterine gestation with a crown-rump length yielding a gestational age of 12 weeks and 1 day. 2. The cervix is visualized and appears to be closed measuring 3.8 cm in length. Patient will be discharged with a diagnosis of threatened and premature ruptured membranes. Follow up with OB within 48 hours. - Diagnoses Differential Diagnoses - Female: Threatened , Urinary Tract Infection, Other - Premature membrane rupture Provider Diagnoses: Premature rupture of membranes, Threatened - Additional Visit Information Is Visit Related: Yes Discharge ED - Sign-Out/Discharge Documenting (check all that apply): Patient Departure - Discharge - Discharge Plan Condition: Stable Disposition: HOME Patient Education Materials: Threatened Miscarriage (ED) Referrals: Ang David MD [Primary Care Provider] - Cristian Cruz MD [Medical Doctor] - Additional Instructions: Follow up with OB within 48 hours. Call for an appointment as soon as you leave the Emergency Department. RETURN TO THE EMERGENCY DEPARTMENT FOR CHANGING OR WORSENING SYMPTOMS. - Attestation Statements Document Initiated by Scribe: Yes Documenting Scribe: Lyndsey Martinez Provider For Whom Scribe is Documenting (Include Credential): Lorenzo Gonzalez MD Scribe Attestation: Lyndsey Vale, scribed for Lorenzo Gonzalez MD on 03/28/19 at 0943. Status of Scribe Document: Ready
[2019-03-28 08:07] LABS: ABS Eosinophils 0.1 10^3/ul (0-0.6); ABS Lymphocytes 1.8 10^3/ul (1.0-4.8); ABS Monocytes 0.4 10^3/ul (0-0.8); ABS Neutrophils 3.4 10^3/ul (1.5-7.7); Eosinophil % 1.7 %; Hematocrit 36 % (35-47); Hemoglobin 12.5 g/dL (12.0-16.0); Lymphocyte % 31.5 %; Mean Corpuscular HGB Conc 35 g/dL (31-36); Mean Corpuscular Hemoglobin 31 pg (27-31); Mean Corpuscular Volume 90 fL (80-97); Mean Platelet Volume 9.6 fL (7.4-10.4); Nucleated Red Blood Cells % 0.1; Platelet Count 177 10^3/uL (150-450); Red Blood Count 3.99 10^6 /uL (3.70-4.87); Red Cell Distribution Width 13 % (10-15); White Blood Count 5.6 10^3/uL (3.5-10.8)
[2019-03-28 08:22] LABS: ALT 27 U/L (7-52); AST 19 U/L (13-39); Albumin 4.4 g/dL (3.2-5.2); Albumin/Globulin Ratio 1.8 (1-3); Alkaline Phosphatase 32 U/L (34-104); Anion Gap 7 mmol/L (2-11); BUN/Creatinine Ratio 12.3 (8-20); Blood Urea Nitrogen 8 mg/dL (6-24); C Reactive Protein < 1.00 mg/L (<8.01); CO2 Carbon Dioxide 23 mmol/L (22-32); Calcium 9.6 mg/dL (8.6-10.3); Chloride 107 mmol/L (101-111); EGFR African American 131.3 (>60); EGFR Non-African American 108.5 (>60); Globulin 2.4 g/dL (2-4); Glucose 84 mg/dL (70-100); Potassium 3.5 mmol/L (3.5-5.0); Sodium 137 mmol/L (135-145); Total Protein 6.8 g/dL (6.4-8.9)
[2019-03-28 08:43] LABS: Urine Appearance Clear; Urine Bilirubin Negative (Negative); Urine Blood Negative (Negative); Urine Color Straw; Urine Glucose Negative (Negative); Urine Ketones Negative (Negative); Urine Nitrite Negative (Negative); Urine Protein Negative (Negative); Urine Specific Gravity 1.004 (1.010-1.030); Urine Urobilinogen Negative (Negative)
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
[2019-03-28 09:49] VITALS: BP 103/60
== END 2019-03-28 09:48 | disposition home or self-care (01) ==
LOC: ED 07:38
DX: O42.911 Preterm premature rupture of membranes, unspecified as to length of time between rupture and onset of labor, first trimester (principal); O20.0 Threatened abortion; J45.909 Unspecified asthma, uncomplicated; Z3A.12 12 weeks gestation of pregnancy; Z87.440 Personal history of urinary (tract) infections; Z79.899 Other long term (current) drug therapy
CPT/HCPCS: 36415; 76801; 80053; 81003; 83605; 83690; 84702; 85025; 86140; 99282

== ENCOUNTER 2019-10-05 22:06 | Inpatient (IN) ==
[2019-10-05] MEDS ORDERED: Lactated Ringers 1000 ml BAG 1,000 ML IV ONE (22:42)
[2019-10-05] MEDS ORDERED: Lactated Ringers 1000 ml BAG 1,000 ML IV SCH (23:00)
[2019-10-05 23:36] LABS: Urine Benzodiazepine Screen None Detected (None Detect); Urine Opiates Screen None Detected (None Detect)
[2019-10-05] MEDS ORDERED: OBEPIDURAL 250 ML EPIDURAL ONE (23:57)
[2019-10-05 23:58] LABS: ABS Eosinophils 0.1 10^3/ul (0-0.6); ABS Lymphocytes 2.2 10^3/ul (1.0-4.8); ABS Monocytes 0.6 10^3/ul (0-0.8); Eosinophil % 0.4 %; Hematocrit 33 % (35-47); Hemoglobin 11.6 g/dL (12.0-16.0); Lymphocyte % 17.2 %; Mean Corpuscular HGB Conc 35 g/dL (31-36); Mean Corpuscular Hemoglobin 32 pg (27-31); Mean Corpuscular Volume 92 fL (80-97); Mean Platelet Volume 9.4 fL (7.4-10.4); Platelet Count 146 10^3/uL (150-450); Red Cell Distribution Width 13 % (10-15)
[2019-10-06] MEDS ORDERED: Lactated Ringers 1000 ml BAG 500 ML IV PRN ×2 (01:10)
[2019-10-06] MEDS ORDERED: Phenylephrine 40 mcg/mL 10mL (400mcg) SYRINGE IV PUSH PRN ×2 (01:10)
[2019-10-06] MEDS ORDERED: EPHEDrine (Pressors) 50 MG/ML VIAL IV PUSH PRN ×2 (01:10)
[2019-10-06] MEDS ORDERED: Sodium Citrate/Citric Acid LIQ 15 ML UDC PO PRN (01:10)
[2019-10-06] MEDS ORDERED: Lactated Ringers 1000 ml BAG 1,000 ML IV ONE (01:10)
[2019-10-06] MEDS ORDERED: Lactated Ringers 1000 ml BAG 1,000 ML IV SCH ×2 (02:00→06:00)
[2019-10-06] MEDS ORDERED: OBEPIDURAL 250 ML EPIDURAL SCH (02:00)
[2019-10-06] MEDS ORDERED: Oxytocin in LR 20 UNITS/1,000 ML BAG IVPB SCH ×2 (03:00→06:00)
[2019-10-06] MEDS ORDERED: Witch Hazel PAD JAR TOPICAL PRN (05:52)
[2019-10-06] MEDS ORDERED: Dibucaine 1% OINT 28.35 GM TUBE PR PRN (05:52)
[2019-10-06] MEDS ORDERED: Lidocaine 1% VIAL 10 MG/ML VIAL ONE (06:18)
[2019-10-06] MEDS ORDERED: Lidocaine 1% MPF 5 ML VIAL ONE (06:56)
[2019-10-07 07:18] VITALS: BP 109/62
[2019-10-07 07:47] LABS: ABS Eosinophils 0.1 10^3/ul (0-0.6); ABS Lymphocytes 2.8 10^3/ul (1.0-4.8); ABS Monocytes 0.5 10^3/ul (0-0.8); Eosinophil % 1.6 %; Hematocrit 29 % (35-47); Hemoglobin 10.1 g/dL (12.0-16.0); Lymphocyte % 30.7 %; Mean Corpuscular HGB Conc 35 g/dL (31-36); Mean Corpuscular Hemoglobin 33 pg (27-31); Mean Corpuscular Volume 93 fL (80-97); Mean Platelet Volume 9.4 fL (7.4-10.4); Platelet Count 124 10^3/uL (150-450); Red Cell Distribution Width 13 % (10-15); White Blood Count 9.3 10^3/uL (3.5-10.8)
== END 2019-10-07 12:05 | disposition home or self-care (01) | DRG 560 ==
LOC: MCHOBOUT 22:06 → MCHOB 22:52
PROVIDERS: ADMIT Advanced Practice Midwife; ATTEND Advanced Practice Midwife

== ENCOUNTER 2021-11-15 10:54 | Inpatient (IN) ==
[2021-11-15] MEDS ORDERED: Albuterol HFA INHALER 8 gm MDI INH PRN (11:54)
[2021-11-15] MEDS ORDERED: Lactated Ringers 1000 ml BAG 1,000 ML IV ONE ×2 (12:22→20:09)
[2021-11-15 14:08] LABS: ABS Eosinophils 0.1 10^3/ul (0-0.6); ABS Lymphocytes 1.8 10^3/ul (1.0-4.8); ABS Monocytes 0.4 10^3/ul (0-0.8); ABS Neutrophils 6.8 10^3/ul (1.5-7.7); Hematocrit 32 % (35-47); Hemoglobin 10.7 g/dL (12.0-16.0); Lymphocyte % 19.3 %; Mean Corpuscular HGB Conc 34 g/dL (31-36); Mean Corpuscular Hemoglobin 31 pg (27-31); Mean Corpuscular Volume 91 fL (80-97); Mean Platelet Volume 9.1 fL (7.4-10.4); Platelet Count 192 10^3/uL (150-450); Red Blood Count 3.48 10^6 /uL (3.70-4.87); Red Cell Distribution Width 13 % (10-15); White Blood Count 9.1 10^3/uL (3.5-10.8)
[2021-11-15 14:27] LABS: Urine Benzodiazepine Screen None Detected (None Detect); Urine Cannabinoids Screen None Detected (None Detect); Urine Opiates Screen None Detected (None Detect)
[2021-11-15 15:39] LABS: HIV 4th Generation Nonreactive (Nonreactive)
[2021-11-15] MEDS ORDERED: OBEPIDURAL (200 ML) 200 ML EPIDURAL ONE (16:00)
[2021-11-15 18:11] LABS: Urine Appearance Clear; Urine Bilirubin Negative (Negative); Urine Blood Negative (Negative); Urine Color Straw; Urine Glucose Negative (Negative); Urine Ketones Negative (Negative); Urine Nitrite Negative (Negative); Urine Protein Negative (Negative); Urine Specific Gravity 1.005 (1.002-1.030); Urine Urobilinogen Negative (Negative)
[2021-11-15] MEDS ORDERED: Oxytocin in LR 20 UNITS/1,000 ML BAG IVPB ONE ×2 (18:57→22:43)
[2021-11-15] MEDS ORDERED: Witch Hazel PAD JAR TOPICAL PRN (20:01)
[2021-11-15] MEDS ORDERED: Dibucaine 1% OINT 28.35 GM TUBE PR PRN (20:01)
[2021-11-15] MEDS ORDERED: Phenylephrine 40 mcg/mL 10mL (400mcg) SYRINGE IV PUSH PRN (20:09)
[2021-11-15] MEDS ORDERED: Lactated Ringers 1000 ml BAG 500 ML IV PRN (20:09)
[2021-11-15] MEDS ORDERED: Sodium Citrate/Citric Acid LIQ 15 ML UDC PO PRN (20:09)
[2021-11-15] MEDS ORDERED: Lactated Ringers 1000 ml BAG 1,000 ML IV SCH ×2 (21:00)
[2021-11-15] MEDS ORDERED: Oxytocin in LR 20 UNITS/1,000 ML BAG IVPB SCH (21:00)
[2021-11-15] MEDS ORDERED: OBEPIDURAL (200 ML) 200 ML EPIDURAL SCH (21:00)
[2021-11-15] MEDS ORDERED: Phenylephrine 40 mcg/mL 10mL (400mcg) SYRINGE ONE (22:56)
[2021-11-15] MEDS ORDERED: Lidocaine 1% MPF 5 ML VIAL ONE (23:00)
[2021-11-16 07:22] LABS: ABS Eosinophils 0.1 10^3/ul (0-0.6); ABS Lymphocytes 1.8 10^3/ul (1.0-4.8); ABS Monocytes 0.6 10^3/ul (0-0.8); ABS Neutrophils 9.1 10^3/ul (1.5-7.7); Eosinophil % 0.8 %; Hematocrit 27 % (35-47); Hemoglobin 9.6 g/dL (12.0-16.0); Lymphocyte % 15.7 %; Mean Corpuscular HGB Conc 35 g/dL (31-36); Mean Corpuscular Hemoglobin 32 pg (27-31); Mean Corpuscular Volume 91 fL (80-97); Mean Platelet Volume 8.9 fL (7.4-10.4); Platelet Count 165 10^3/uL (150-450); Red Blood Count 2.98 10^6 /uL (3.70-4.87); Red Cell Distribution Width 13 % (10-15); White Blood Count 11.6 10^3/uL (3.5-10.8)
[2021-11-16] MEDS ORDERED: Calcium Carb (TUMS) 500 mg CHEW TAB PO PRN (10:40)
[2021-11-17 09:08] VITALS: BP 116/65
== END 2021-11-17 11:40 | disposition home or self-care (01) | DRG 560 ==
LOC: MCHOBOUT 10:54 → MCHOB 12:38
PROVIDERS: ADMIT Midwife; ATTEND Midwife